=== PATIENT | female | born 1950 | race Caucasian/White ===

== ENCOUNTER 2019-10-29 08:06 | Outpatient (CLI) | payer MEDICARE, SELFPAY ==
--- NOTE | ~2019-10-29 | MM_ITS ---
EXAMINATION: MM screening [facility] w che HISTORY: Screening mammogram TECHNIQUE: Craniocaudal and mediolateral oblique 3-D tomosynthesis images were obtained and synthetic 2-D images were generated. CAD analysis was submitted and interpreted. COMPARISON: 06/29/2018, 12/15/2016, 07/19/2014 bilateral digital screening mammogram examinations BREAST PARENCHYMAL COMPOSITION: There are scattered areas of fibroglandular density. FINDINGS: There is no evidence of suspicious mass, calcification, or architectural distortion to sugg est malignancy in either breast. There has been no suspicious interval change. IMPRESSION: 1. No mammographic evidence of malignancy. 2. Recommend routine screening mammography in one year. BI-RADS Category 1: Negative Reviewed, dictated and finalized at location A. [employer]ER
== END 2019-10-29 08:07 | disposition home or self-care (01) ==
LOC: ANHIMG 08:10
PROVIDERS: PCP Emergency Medicine; Visit Provider Emergency Medicine
DX: Z12.31 Encounter for screening mammogram for malignant neoplasm of breast (principal)
CPT/HCPCS: 77063; 77067

== ENCOUNTER → 2021-02-28 15:14 | Outpatient (CLI) | payer MEDICARE, OTHER, SELFPAY ==
--- NOTE | ~2021-02-28 | XR_ITS ---
XR hip LT 1V w AP pelvis DATE: 02/28/2021 15:34 INDICATION: Back pain, left hip pain TECHNIQUE: AP pelvis. AP, lateral and crosstable lateral views of left hip COMPARISON: None FINDINGS: There is degenerative change at the pubic symphysis. Mild osteopenia. No pelvic fracture or bone destruction. The sacroiliac joints are normal. The joint spaces are symmetric and relatively preserved. No fracture, dislocation, avascular necrosis or bone destruction of the left hip. IMPRESSION: Degenerative change at the pubic symphysis Reviewed, dictated and finalized at location A.
--- NOTE | ~2021-02-28 | XR_ITS ---
XR lumbar spine 2-3V DATE: 02/28/2021 15:34 INDICATION: Left hip pain TECHNIQUE: AP, lateral, coned lateral lumbosacral views COMPARISON: 07/19/2014 lumbar spine FINDINGS: There is mild dextroscoliosis of the thoracolumbar spine. Osteopenia. There is degenerative spurring of the lower thoracic spine. No fracture or bone destruction of the lumbar spine. The lumbar pedicles are intact. There is mild to moderate degenerative disc disease of the lumbar spine, most pronounced at L3-4. No spondylolisthesis. The sacroiliac joints appear normal. Degenerative change at the pubic symphysis. IMPRESSION: Osteopenia Degenerative changes of the thoracic and lumbar spine Reviewed, dictated and finalized at location A.
== END ==
PROVIDERS: PCP Emergency Medicine; Visit Provider Emergency Medicine
DX: M54.5 Low back pain (principal); M85.88 Other specified disorders of bone density and structure, other site
CPT/HCPCS: 72100; 73501

== ENCOUNTER 2021-03-15 09:52 | Outpatient (CLI) | payer MEDICARE, OTHER, SELFPAY ==
--- NOTE | ~2021-03-15 | MM_ITS ---
EXAMINATION: MM screening [facility] BI w che HISTORY: Screening mammogram TECHNIQUE: Craniocaudal and mediolateral oblique 3-D tomosynthesis images were obtained and synthetic 2-D images were generated. CAD analysis was submitted and interpreted. COMPARISON: 10/28/2019, 07/18/2018, 12/05/2016 BREAST PARENCHYMAL COMPOSITION: There are scattered areas of fibroglandular density. FINDINGS: There is no evidence of suspicious mass, calcification, or architectural distortion to sugg est malignancy in either breast. There has been no suspicious interval change. IMPRESSION: 1. No mammographic evidence of malignancy. 2. Recommend routine screening mammography in one year. BI-RADS Category 1: Negative Reviewed, dictated and finalized at location A.
== END 2021-03-15 09:53 | disposition home or self-care (01) ==
PROVIDERS: PCP Emergency Medicine; Visit Provider Emergency Medicine
DX: Z12.31 Encounter for screening mammogram for malignant neoplasm of breast (principal)
CPT/HCPCS: 77063; 77067

== ENCOUNTER 2021-08-08 14:49 | Outpatient (CLI) | payer MEDICARE, OTHER, SELFPAY ==
--- NOTE | ~2021-08-08 | US_ITS ---
US renal BI 08/08/2021 15:21 Procedure: Realtime transabdominal ultrasound of the kidneys and bladder. Indication: Right flank pain Comparison: No prior studies for comparison. Findings: Renal echotexture is normal bilaterally without hydronephrosis, contour deforming mass or r enal calculus. The right kidney measures 10.3 cm and left kidney measures 10.3 cm. Bladder within no rmal limits. Impression: 1: Unremarkable renal ultrasound. No stones, masses or hydronephrosis. Reviewed, dictated and finalized at location A. INUMSMITH Impression: 1: Unremarkable renal ultrasound. No stones, masses or hydronephrosis.
== END 2021-08-08 14:50 | disposition home or self-care (01) ==
LOC: ANHIMG 14:54
PROVIDERS: PCP Emergency Medicine; Visit Provider Emergency Medicine
DX: R10.9 Unspecified abdominal pain (principal)
CPT/HCPCS: 76775

== ENCOUNTER 2021-08-15 12:56 | Outpatient (CLI) | payer MEDICARE, OTHER, SELFPAY ==
--- NOTE | ~2021-08-15 | DEXA_ITS ---
Bone Density Report Name: Soumya Smith Age: 70 Sex: Female Ethnicity: White Date of : 1950 Indication: postmenopausal osteoporosis; monitoring treatment; height loss; prior fracture; Referring Provider: THALIA ENAMORADO Study: Bone densitometry was performed. Exam Date: August 15, 2021 Accession number: [id number] Bone Density: Region BMD T-score Z-score Classification AP Spine (L1-L4) 0.822 -2.0 0.2 Osteopenia Femoral Neck (Left) 0.799 -0.4 1.5 Normal Total Hip (Left) 0.918 -0.2 1.4 Normal Total Hip Bilateral Avg 0.869 -0.6 1.0 Normal Femoral Neck (Right) 0.677 -1.6 0.4 Osteopenia Total Hip (Right) 0.820 -1.0 0.6 Normal World Health Organization criteria for BMD impression classify patients as: Normal (T-score at or above -1.0), Osteopenia (T-score between -1.0 and -2.5), or Osteoporosis (T-score at or below -2.5). 10-year Fracture Risk: FRAX not reported because: Treated for osteoporosis Previous Exams: Region Exam Age BMD T-score BMD Change BMD Change Date g/cm2 vs Baseline vs Previous AP Spine(L1-L4) 08/15/2021 70 0.822 -2.0 0.004(0.5%)# 0.073(9.8%)* 01/11/2019 68 0.748 -2.7 -0.069(-8.5%)# -0.033(-4.2%)* 12/20/2016 66 0.781 -2.4 -0.036(-4.5%)# 0.006(0.7%) 07/19/2014 63 0.775 -2.5 -0.042(-5.2%)# -0.051(-6.1%)# 06/16/2009 58 0.826 -2.0 0.008(1.0%) 0.008(1.0%) 01/05/2004 53 0.817 -2.1 Total Hip(Left) 08/15/2021 70 0.918 -0.2 -0.040(-4.2%)# 0.034(3.9%)* 01/11/2019 68 0.884 -0.5 -0.075(-7.8%)# -0.027(-2.9%) 12/20/2016 66 0.910 -0.3 -0.048(-5.0%)# -0.032(-3.4%)* 07/19/2014 63 0.943 0.0 -0.016(-1.6%)# 0.024(2.6%)# 06/16/2009 58 0.919 -0.2 -0.040(-4.1%)* -0.040(-4.1%)* 01/05/2004 53 0.958 0.1 Total Hip(Right) 08/15/2021 70 0.820 -1.0 -0.054(-6.2%)# 0.006(0.7%) 01/11/2019 68 0.814 -1.0 -0.060(-6.8%)# -0.006(-0.7%) 12/20/2016 66 0.820 -1.0 -0.054(-6.2%)# -0.009(-1.1%) 07/19/2014 63 0.829 -0.9 -0.045(-5.1%)# -0.080(-8.8%)# 06/16/2009 58 0.909 -0.3 0.035(4.1%)* 0.035(4.1%)* 01/05/2004 53 0.874 -0.6 *Denotes significance at 95% confidence level, LSC for AP Spine = 0.022 g/cm2, LSC for Total Hip = 0.027 g/cm2 Clinical Information Provided by Patient: Has had a low trauma fracture Is being treated for osteoporosis Has used the following medications: Fosamax (i.e. alendronate), Vitamin D, Calcium Patient maximum height was 64 Menopause Age: 54 Onset of menses at age 1
== END 2021-08-15 12:57 | disposition home or self-care (01) ==
LOC: ANHIMG 12:57
PROVIDERS: PCP Emergency Medicine; Visit Provider Emergency Medicine
DX: Z78.0 Asymptomatic menopausal state (principal); M85.88 Other specified disorders of bone density and structure, other site; M85.851 Other specified disorders of bone density and structure, right thigh
CPT/HCPCS: 77080

== ENCOUNTER 2023-02-17 07:50 | Outpatient (CLI) | payer MEDICARE, OTHER, SELFPAY ==
--- NOTE | ~2023-02-17 | MM_ITS ---
EXAMINATION: MM screening [facility] BI w che HISTORY: Screening mammogram TECHNIQUE: Craniocaudal and mediolateral oblique 3-D tomosynthesis images were obtained and synthetic 2-D images were generated. CAD analysis was submitted and interpreted. COMPARISON: 03/15/2021, 10/29/2019, 06/29/2018 BREAST PARENCHYMAL COMPOSITION: There are scattered areas of fibroglandular density. FINDINGS: No suspicious mass, calcification, or architectural distortion are identified in either hoda ast to suggest malignancy. There has been no suspicious interval change. IMPRESSION: 1. No mammographic evidence of malignancy. 2. Recommend routine screening mammography in one year. BI-RADS Category 1: Negative Reviewed, dictated and finalized at location A.
== END 2023-02-17 07:51 | disposition home or self-care (01) ==
LOC: ANHIMG 07:53
PROVIDERS: PCP Emergency Medicine; Visit Provider Emergency Medicine
DX: Z12.31 Encounter for screening mammogram for malignant neoplasm of breast (principal)
CPT/HCPCS: 77063; 77067

== ENCOUNTER 2023-10-07 08:36 | Outpatient (CLI) | payer MEDICARE, OTHER, SELFPAY ==
--- NOTE | ~2023-10-07 | DEXA_ITS ---
Bone Density Report Name: MARIAH HARMAN Age: 73 Sex: Female Ethnicity: White Date of : 1950 Indication: osteopenia; monitoring treatment; height loss; cancer; postmenopausal Referring Provider: THALIA ENAMORADO Study: Bone densitometry was performed. Exam Date: October 07, 2023 Accession number: [id number] Bone Density: Region BMD T-score Z-score Classification AP Spine(L1-L4) 0.813 -2.1 0.2 Osteopenia Femoral Neck (Left) 0.753 -0.9 1.2 Normal Total Hip (Left) 0.931 -0.1 1.6 Normal Femoral Neck (Right) 0.711 -1.2 0.8 Osteopenia Total Hip (Right) 0.866 -0.6 1.1 Normal Total Hip Mean 0.898 -0.4 1.4 Normal World Health Organization criteria for BMD impression classify patients as: Normal (T-score at or above -1.0), Osteopenia (T-score between -1.0 and -2.5), or Osteoporosis (T-score at or below -2.5). 10-year Fracture Risk: FRAX not reported because: Treated for osteoporosis Previous Exams: Region Exam Age BMD T-score BMD Change BMD Change Date g/cm2 vs Baseline vs Previous AP Spine (L1-L4) 10/07/2023 73 0.813 -2.1 0.038 (4.8%)* -0.009 (-1.1%) 08/15/2021 70 0.822 -2.0 0.046 (6.0%)* 0.073 (9.8%)* 01/11/2019 68 0.748 -2.7 -0.027 (-3.5%) -0.033 (-4.2%) 12/20/2016 66 0.781 -2.4 0.006 (0.7%) 0.006 (0.7%) 07/19/2014 63 0.775 -2.5 Total Hip(Left) 10/07/2023 73 0.931 -0.1 -0.012 (-1.3%) 0.013 (1.4%) 08/15/2021 70 0.918 -0.2 -0.025 (-2.6%) 0.034 (3.9%)* 01/11/2019 68 0.884 -0.5 -0.059 (-6.2%) -0.027 (-2.9%) 12/20/2016 66 0.910 -0.3 -0.032 (-3.4%) -0.032 (-3.4%) 07/19/2014 63 0.943 0.0 Total Hip(Right) 10/07/2023 73 0.866 -0.6 0.037 (4.4%)* 0.046 (5.6%)* 08/15/2021 70 0.820 -1.0 -0.009 (-1.1%) 0.006 (0.7%) 01/11/2019 68 0.814 -1.0 -0.015 (-1.8%) -0.006 (-0.7%) 12/20/2016 66 0.820 -1.0 -0.009 (-1.1%) -0.009 (-1.1%) 07/19/2014 63 0.829 -0.9 *Denotes significance at 95% confidence level, LSC for AP Spine = 0.022 g/cm2, LSC for Total Hip = 0.027 g/cm2 Clinical Information Provided by Patient: Is being treated for osteoporosis Has used the following medications: Vitamin D, Calcium Has the following medical conditions: Cancer Patient maximum height was 64 Menopause Age: 54 Drinks caffeinated beverages Onset of menses at age 13 Number of children 4 Impression: The patient has low bone mass, based on the Total Spine T-score. N
== END 2023-10-07 08:37 | disposition home or self-care (01) ==
PROVIDERS: PCP Emergency Medicine; Visit Provider Emergency Medicine
DX: M85.89 Other specified disorders of bone density and structure, multiple sites (principal)
CPT/HCPCS: 77080

== ENCOUNTER 2024-09-30 14:42 | Outpatient (CLI) | payer MEDICARE, OTHER, SELFPAY ==
--- NOTE | ~2024-09-30 | MM_ITS ---
EXAMINATION: MM screening [facility] BI w che HISTORY: Screening mammogram TECHNIQUE: Craniocaudal and mediolateral oblique 3-D tomosynthesis images were obtained and synthetic 2-D images were generated. CAD analysis was submitted and interpreted. COMPARISON: 02/17/2023, 03/15/2021 BREAST PARENCHYMAL COMPOSITION:Not Dense. There are scattered areas of fibroglandular density. FINDINGS: No suspicious mass, calcification, or architectural distortion are identified in either hoda ast to suggest malignancy. There has been no suspicious interval change. IMPRESSION: No mammographic evidence of malignancy. Recommend routine screening mammography in one year. BI-RADS Category 1: Negative Reviewed, dictated and finalized at location . [employer]
== END 2024-09-30 14:43 | disposition home or self-care (01) ==
LOC: ANHIMG 14:42
PROVIDERS: PCP Emergency Medicine; Visit Provider Emergency Medicine
DX: Z12.31 Encounter for screening mammogram for malignant neoplasm of breast (principal)
CPT/HCPCS: 77063; 77067